=== PATIENT | female | born 1980 | race Caucasian/White ===

== ENCOUNTER 2025-08-11 09:29 | Outpatient (CLI) | payer BC, SELFPAY ==
--- NOTE | 2025-08-11 09:45 | CRLHL7_ITS ---
For Patients: As a result of the Cures Act, medical imaging exams and procedure reports are released immediately into your electronic medical record. You may view this report before your referring provider. If you have questions, please contact your health care provider. DIGITAL DIAGNOSTIC RIGHT BREAST MAMMOGRAM WITH COMPUTER-AIDED DETECTION AND TOMOSYNTHESIS CLINICAL HISTORY: RIGHT breast six-month follow-up. COMPARISON: 02/23/2025, 02/03/2025. TECHNIQUE: Digital RIGHT mammogram in 2 projections with computer-aided detection. Tomosynthesis was used in this interpretation. Real-time ultrasound imaging of RIGHT breast with imaging documentation. BREAST COMPOSITION: There are scattered areas of fibroglandular density. FINDINGS: 3D CC/MLO RIGHT breast mammogram images submitted. No suspicious masses. No architectural distortion. No suspicious calcifications. Targeted RIGHT breast ultrasound performed at 9 o`clock 10 cm from the nipple. Similar small hyperechoic foci are present measuring up to 5 millimeters. No abnormal vascularity. No shadowing lesion. IMPRESSION: Stable benign subcutaneous lipomas. No suspicious findings. No evidence of malignancy. RECOMMENDATIONS: Routine screening mammography. A lay language report of this examination will be provided to the patient. BI-RADS Category 2. Benign Dictated by Luiz Dupree MD @ 08/11/2025 10:25:17 AM ANNE/efrem DW/Dictated by: Luiz Dupree MD @ 08/11/2025 10:25:00 AM (Electronically Signed)
--- NOTE | 2025-08-11 10:15 | CRLHL7_ITS ---
For Patients: As a result of the Century Cures Act, medical imaging exams and procedure reports are released immediately into your electronic medical record. You may view this report before your referring provider. If you have questions, please contact your health care provider. Please see digital diagnostic RIGHT breast done the same day for combined report. DSM:efrem 08/11/2025 DW/Dictated by: Luiz Dupree MD @ 08/11/2025 10:23:00 AM (Electronically Signed)
== END 2025-08-11 09:30 | disposition home or self-care (01) ==
LOC: MAMMO 09:30
PROVIDERS: Visit Provider Registered Nurse
DX: N63.10 Unspecified lump in the right breast, unspecified quadrant (principal)
CPT/HCPCS: 76642; 77065; G0279